=== PATIENT | male | born 2000 | race Caucasian/White ===

== ENCOUNTER 2020-05-09 17:15 | Emergency (ER) | payer OTHER, SELFPAY ==
[2020-05-09 17:17] VITALS: BP 152/102; PULSE 96; RESP 18; TEMP 36.5; O2SAT 99; BMI 22.2
[2020-05-09] MEDS: MethylPREDNISolone 125 MG/2 ML Vial IV (17:26)
[2020-05-09] MEDS: Oxymetazoline 0.05% 1 SPRAY SPRAY.BTL 2 SPRAY NASAL (17:38)
[2020-05-09] MEDS: Famotidine 200 MG/20 ML MDV 20 MG in 0.9% Normal Saline (Pres. free 8 ML 300 MG IV (17:40)
--- NOTE | 2020-05-09 17:47 | ED.VISSUMM ---
- ER Visit Summary Date of Service: 05/09/20 Chief Complaint: Allergic reaction History of Present Illness: The patient is a 19 M who presents with an allergic reaction that occurred today. Patient states he ate walnuts just prior to arrival. Patient states he has a history of allergy to peanuts and tree nuts. Patient states he felt his throat closing and swelling. Patient took 2 [id number] Benadryl tablets and his EpiPen prior to arrival. Patient admits to some difficulty swallowing but denies any difficulty breathing. Patient does admit to some mild change in his voice. Patient denies any hives. Physical Examination: Vital signs are stable. Patient is afebrile. Patient is in no acute distress. Oral mucosa is pink and moist. Oropharynx is clear airway is patent. There may be some trace edema of the oropharynx. There are no exudates. Neck is supple. Trachea is midline. There is no JVD. Heart was regular rate and rhythm. Lungs are clear and equal bilaterally. There is good respiratory effort noted. Abdomen is soft. Bowel sounds are normal. There is no tenderness. Cranial nerves II through XII are intact. There are no focal motor or sensory deficits noted. Extremities are intact. There is no calf tenderness or edema. Skin is warm and dry. There is no rash or urticaria noted. Emergency Department Course and Treatment: Patient was given Solu-Medrol and Pepcid here. Benadryl was withheld because he took Benadryl prior to arrival. Patient was also complaining of some nasal congestion. Patient was given Afrin nasal spray here. Patient was feeling much better on reevaluation. Patient was given a prescription for prednisone. Patient was also given a prescription for a new EpiPen. Patient was instructed to follow-up with his primary care physician in 5 to 7 days. Patient was instructed return if worse in any way. Patient understood and was agreeable with the plan. All questions were answered. Disposition: Discharge home Impression: 1. Allergic reaction This note was generated with [employer] dictation software. It may contain incorrect words, spelling, and punctuation that were not noted in review of the chart prior to signing ED Disposition - Plan for ED Patient: Disposition: Home or Assisted Living Diagnosis: Allergic reaction to food Instructions: ED Allergic React Food Prescriptions: Epi Pen (for allergic rxn) 0.3 mg IM X1 #1 syringe Prescription Printed predniSONE tablet 60 mg PO DAILY #15 tab Prescription Printed Referrals: Gwendolyn Hendrickson MD [NON-STAFF] - 5-7 Days
[2020-05-09 18:15] VITALS: BP 130/91; PULSE 84; RESP 16; O2SAT 97
== END 2020-05-09 19:00 | disposition home or self-care (01) ==
PROVIDERS: Emergency Provider Emergency Medicine
DX: T78.1XXA Other adverse food reactions, not elsewhere classified, initial encounter (principal); R13.10 Dysphagia, unspecified; X58.XXXA Exposure to other specified factors, initial encounter; Z91.010 Allergy to peanuts
CPT/HCPCS: 96374; 96375; 99282; J7030; J3490

== ENCOUNTER → 2025-10-15 | Outpatient (CLI) | payer OTHER, SELFPAY ==
[2025-10-15 12:19] LABS: Hematocrit 42.6 % (40-54); Hemoglobin 14.8 g/dL (13.0-16.5); Immature Granulocytes Count 0.030 X10^3/uL (0.0-0.0); Mean Corp Hgb Conc 34.7 g/dL (32-36); Mean Corpuscular Volume 90.6 fL (80-94); Mean Platelet Vol. 9.1 fl (6.2-12.0); NRBC Flagged by Analyzer 0 % (0-5); Platelet Count 329 K/mm3 (150-450); RBC Distribution Width CV 12.1 % (11.6-14.6); RBC Distribution Width SD 39.9 fl (35.1-43.9); Red Blood Count 4.70 M/mm3 (4.6-6.2); White Blood Count 7.8 K/mm3 (4.4-11.0)
[2025-10-15 12:40] LABS: AST(SGOT) 44 U/L (<=37); Alanine Aminotransfer ALT/SGPT 34 U/L (<=46); Albumin, Serum 4.7 g/dL (3.5-5.0); Alkaline Phosphatase 85 U/L (40-129); Anion Gap 9 (5-15); BUN 15 mg/dL (4-19); BUN/Creat Ratio 13.4 RATIO (10-20); Calcium,Total 10.1 mg/dL (7.6-11.0); Carbon Dioxide 26.0 mmol/L (21.0-32.0); Chloride 104 mmol/L (98-108); Cholesterol 170 mg/dL (<=200); Globulin 3.0 g/dL (2.2-4.2); Glucose 92 mg/dL (70-99); Low Density Lipoprotein Calc. 97 mg/dL; Potassium 4.1 mmol/L (3.3-5.1); Triglycerides 79 mg/dL; Very Low Density Lipoprotein 16 mg/dL (5-40); cholesterol:hdl ratio screen 2.91
[2025-10-18 04:07] LABS: QNTFERON TB Mitogen Value > 10.00 IU/mL (.); QNTFERON TB Nil Value 0.07 IU/mL (.); QNTFERON TB1+ Ag Value 0.08 IU/mL (.); QNTFERON TB2+ Ag Value 0.07 IU/mL (.); QNTIFERON TB Positive Criteria Negative (Negative)
== END | disposition home or self-care (01) ==
LOC: MTLAB 10:22
PROVIDERS: Referring Provider Physician Assistant Medical; Visit Provider Physician Assistant Medical
DX: L20.89 Other atopic dermatitis (principal)
CPT/HCPCS: 36415; 80053; 80061; 85025; 86480